=== PATIENT | male | born 1990 | race Caucasian/White ===

== ENCOUNTER 2019-03-21 09:50 | Emergency (ER) | payer OTHER ==
[~2019-03-21] VITALS: Ht 167.6 cm; Wt 76.9 kg
[2019-03-21 09:51] VITALS: BP 121/70
[2019-03-21] MEDS ORDERED: METAL LOCK LOOP XX ONE (10:23)
[2019-03-21] MEDS ORDERED: AUGM875T28 PO (10:28)
[2019-03-21] MEDS ORDERED: AUGMENTIN 875 MG TAB PO ONE (10:30)
== END 2019-03-21 10:32 | disposition home or self-care (01) ==
LOC: M ED 09:50
DX: H66.003 Acute suppurative otitis media without spontaneous rupture of ear drum, bilateral (principal); J01.90 Acute sinusitis, unspecified

== ENCOUNTER → 2023-06-11 | Outpatient (CLI) | payer BC ==
[~2023-06-11] MED LIST: AUGM875T28 PO
== END ==
LOC: M PLAIMG 06:37
PROVIDERS: ATTEND Internal Medicine
DX: M54.50 Low back pain, unspecified (principal)

== ENCOUNTER → 2023-09-17 | Outpatient (CLI) | payer BC | LOC: M SOG 07:55 | PROVIDERS: ATTEND Orthopaedic Surgery | DX: M54.50 Low back pain, unspecified (principal) ==

== ENCOUNTER → 2023-09-30 | Outpatient (CLI) | payer BC ==
[~2023-09-30] MED LIST changes: +GASTROGRAFIN SOLUTION 30ML As Ordered ONE; +ISOVUE-370 76% 100ML VIAL As Ordered ONE
== END ==
LOC: M RAD 11:07
PROVIDERS: ATTEND Internal Medicine
DX: R10.814 Left lower quadrant abdominal tenderness (principal)
CPT/HCPCS: 74177; 86140; Q9963; Q9967

== ENCOUNTER → 2023-12-08 | Outpatient (REF) | payer BC ==
[~2023-12-08] MED LIST changes: -GASTROGRAFIN SOLUTION 30ML As Ordered ONE; -ISOVUE-370 76% 100ML VIAL As Ordered ONE
== END ==
LOC: M LAB REF 16:19
PROVIDERS: ATTEND Internal Medicine
DX: R10.32 Left lower quadrant pain (principal)

== ENCOUNTER → 2023-12-26 | Outpatient (CLI) | payer OTHER ==
[~2023-12-26] MED LIST changes: +GASTROGRAFIN SOLUTION 30ML ONE
== END ==
LOC: M PLAIMG 11:14
PROVIDERS: ATTEND Internal Medicine
DX: R10.32 Left lower quadrant pain (principal)
CPT/HCPCS: 74176; Q9963

== ENCOUNTER 2024-01-13 11:00 | Day surgery (SDC) | payer OTHER ==
[~2024-01-13] VITALS: Ht 170.2 cm; Wt 83.9 kg
[~2024-01-13 11:00] MED LIST changes: -GASTROGRAFIN SOLUTION 30ML ONE
[2024-01-13] MEDS: NS 1,000 ML IV ONE (11:19)
[2024-01-13] MEDS ORDERED: propofoL 500 MG/50 ML VIAL As Ordered ONE (12:32)
[2024-01-13 12:52] VITALS: TEMP 97.6
[2024-01-13 13:09] VITALS: BP 115/66; O2SAT 98
== END 2024-01-13 13:41 | disposition home or self-care (01) ==
LOC: M OPP 11:00
PROVIDERS: ATTEND Internal Medicine Gastroenterology
DX: K57.32 Diverticulitis of large intestine without perforation or abscess without bleeding (principal); K63.5 Polyp of colon; K64.8 Other hemorrhoids; K64.4 Residual hemorrhoidal skin tags; K21.9 Gastro-esophageal reflux disease without esophagitis; Z90.49 Acquired absence of other specified parts of digestive tract

== ENCOUNTER → 2024-05-24 | Outpatient (REF) | payer OTHER ==
[2024-05-24 18:29] LABS: FOLLICLE STIMULATING HORMONE 4.8 mIU/ML (1.4-18.1); LUTEINIZING HORMONE 4.9 mIU/ML (1.5-9.3)
== END ==
LOC: M LAB REF 17:19
PROVIDERS: ATTEND Internal Medicine
DX: N52.9 Male erectile dysfunction, unspecified (principal)

== ENCOUNTER → 2024-10-20 | Outpatient (REF) | payer OTHER | LOC: M SMT 13:21 | PROVIDERS: ATTEND Urology | DX: Z30.2 Encounter for sterilization (principal) ==

== ENCOUNTER → 2025-08-24 | Outpatient (CLI) | payer OTHER | LOC: M SOG 07:40 | PROVIDERS: ATTEND Neuromusculoskeletal Medicine, Sports Medicine | DX: M25.512 Pain in left shoulder (principal) ==